=== PATIENT | female | born 2000 | race Asian ===

== ENCOUNTER 2025-10-24 02:30 | Emergency (ER) | payer OTHER, SELFPAY ==
[2025-10-24 02:30] VITALS: BP 109/80; PULSE 82; RESP 20; TEMP 36.9; O2SAT 100
[2025-10-24 02:52] VITALS: BP 111/81; PULSE 85; RESP 19; TEMP 36.9; O2SAT 100
--- NOTE | 2025-10-24 03:13 | ED_ITS ---
HPI - Wound/Laceration General Chief Complaint: Wound/Laceration Stated Complaint: LEFT LEG LACERATION Time Seen by Provider: 10/24/25 02:54 Source: patient and family Mode of arrival: EMS Limitations: language barrier (Pashto science interpreter used.) History of Present Illness HPI narrative: Patient is a 24-year-old female presents to the emergency department accompanied by for a wound to the left leg. Patient was jumping around on the bed and hit her left leg on part of a right causing a cut. Patient notes her last tetanus shot was a long time ago. Patient denies any other injuries. Patient admits to mild amount of blood loss. Patient denies any focal weakness or numbness. Related Data Allergies Allergy/AdvReac Type Severity Reaction Status Date / Time No Known Allergies Allergy Verified 10/24/25 02:50 Review of Systems Review of Systems: A 10 system review of systems was completed on the patient and is negative except for what is stated in the HPI. Nursing and ancillary documentation was reviewed. Exam Narrative: CONST: No acute distress. Well nourished. HENMT: Head is normocephalic and atraumatic. Moist mucous membranes. No benefit specialist ior oropharynx erythema. EYES: No scleral icterus. No conjunctival injection or pallor. PERRL. NECK: No meningeal signs. RESP: Able to speak in full sentences. Normal respiratory effort. CTAB. CARDIO: Regular rate. Regular rhythm. 2+ DP and radial pulses bilaterally. GI: Nondistended. No tenderness to palpation. Soft. : No CVA tenderness to palpation. SKIN: No rashes or lesions noted on exposed skin. 8 cm mostly linear laceration to the left proximal medial lower leg, no joint space involvement, no foreign bodies, no active bleeding, depth is about 1.5 cm and involving adipose tissue, no muscle involvement. NEURO: Oriented x3. Moves all extremities. EXTREM/MSK/BACK: No pedal edema. Patient is able to flex and extend her left knee actively without any difficulty. Sensation intact to light touch throughout the left lower extremity. Normal dorsiflexion and plantar flexion of the left ankle. PSYCH: Normal affect. Course Vital Signs Vital signs: Vital Signs Temperature 98.5 F 10/24/25 02:30 Pulse Rate 82 10/24/25 02:30 Respiratory Rate 20 10/24/25 02:30 Blood Pressure 109/80 10/24/25 02:30 Pulse Oximetry 100 10/24/25 02:30 Oxygen Delivery Room Air 10/24/25 02:30 Temperature 98.5 F 10/24/25 02:52 Pulse Rate 85 10/24/25 02:52 Respiratory Rate 19 10/24/25 02:52 Blood Pressure 111/81 10/24/25 02:52 Pulse Oximetry 100 10/24/25 02:52 Oxygen Delivery Room Air 10/24/25 02:30 Procedures Laceration Laceration 1: Date: 10/24/25 Time: 03:30 Site: lower extremity Side (If applicable): left Size (cm): 8 Description: linear Depth: simple, single layer (Involves adipose tissue, complex) Local Anesthetic: lidocaine 1% and with epi Amount of anesthesia used (mL): 9 Pre-repair: wound explored, irrigated and irrigated extensively ====== Skin Level ====== Skin layer closed with: nylon Size (cm): 4-0 Number of sutures: 15 Technique: simple, interrupted (1 interrupted) and running (14 running) ====== Subcutaneous Layer ====== Subcutaneous layer closed with: vicryl Size: 4-0 Number of sutures: 7 Technique: simple, interrupted ====== Muscle Layer ====== ====== Tendon Layer ====== Dressinx4 dressing [facility] Narrative Medical decision making narrative: Patient presents with the above complaint. Initial vitals are remarkable for no significant abnormalities. Physical examination as noted above. Plan discussed: Tdap booster for tetanus prophylaxis, [place], wound care, laceration repair. Complex laceration repair performed, patient tolerated procedure well, patient able to range her left leg through a full range of motion, no active bleeding, patient feels well at this time and is ready to go home. Patient was reassessed at the bedside. No changes in physical exam. Patient is in no acute distress. The patient has remained stable throughout the entire ED visit. Counseled patient regarding diagnostic results and potential diagnosis. Anticipatory guidance provided. Patient instructed to follow up with primary care physician or go to urgent care or return to the emergency department in 14 days. Patient counseled on: false reassurance from an emergency department evaluation; no current evidence of a medical emergency; return immediately for any new, recurrent, worsening, concerning, or refractory symptoms. Medications discussed with patient. Additional verbal and printed discharge instructions were given and discussed with the patient. Patient verbally acknowledges understanding of condition and discharge instructions. All questions were answered to the patient's satisfaction. Patient is in agreement with the plan of care. The patient is stable for discharge and was discharged without incident. Differential Diagnosis Differential Diagnosis: Laceration. Discharge Plan Discharge Clinical Impression: Laceration Patient Disposition: Home Condition: Stable Instructions: Antibiotic Form, Care For Your Stitches (ED), Laceration (ED) Additional Instructions: Keep the wound completely dry for the 1st 24 hours, after 24 hours of being completely dry you can then rinse gently with soap and water, do not scrub with anything abrasive. Take Tylenol as needed for any discomfort. Avoid sun exposure to the area for at least the next 6 months to help with scarring. Follow-up with your primary care physician or go to urgent care or return to the emergency department in 14 days for suture removal. Return immediately to the emergency department for any new or concerning symptoms especially rapidly spreading redness, thicker foul-smelling discharge, fever, sudden increase in pain, or any emergent concerns for life, limb, eyesight. Patient Language: Nauruan Follow-up/Referrals: Kenny Camp MD [Physician, Family Practice] - 2 Weeks Time of Disposition: 04:18
[2025-10-24] MEDS: TETANUS,DIPHTHERIA,AC PERTUSSIS ADULT (0.5 ML) BOOSTRIX IM (03:22)
[2025-10-24] MEDS: HYDROcodone/acetaminophen (*CRX) 5-325 MG TABLET 1 TAB PO (03:22)
[2025-10-24 04:38] VITALS: BP 106/72; PULSE 75; RESP 14; TEMP 36.6; O2SAT 99
== END 2025-10-24 04:31 | disposition home or self-care (01) ==
LOC: ANHED 04:20
PROVIDERS: Emergency Provider Student in an Organized Health Care Education/Training Program
DX: S81.812A Laceration without foreign body, left lower leg, initial encounter (principal); Z23 Encounter for immunization; W45.8XXA Other foreign body or object entering through skin, initial encounter
CPT/HCPCS: 12034; 90471; 90715; 99283; A9270